=== PATIENT | female | born 1990 | race Caucasian/White ===

== ENCOUNTER → 2020-10-25 16:29 | Outpatient (CLI) | payer BC, SELFPAY ==
[2020-10-25 17:34] LABS: Progesterone Level 16.11 ng/mL (See Comment)
== END ==
PROVIDERS: Visit Provider Obstetrics & Gynecology
DX: N97.9 Female infertility, unspecified (principal)
CPT/HCPCS: 36415; 84144

== ENCOUNTER 2023-12-27 19:09 | Inpatient (IN) | payer BC, SELFPAY ==
[2023-12-27 19:32] VITALS: PULSE 213; O2SAT 81
[2023-12-27 19:33] VITALS: BP 150/83; PULSE 68; RESP 18; TEMP 36.3
[2023-12-27 19:35] VITALS: BMI 42.7
[2023-12-27 19:41] LABS: Absolute Lymphocyte Count 2.29 X10^3/uL (0.83-4.51); Absolute Neutrophil Count 6.4 X10^3/uL (2.0-7.7); Basophil# 0.02 X10^3/uL; Basophil% 0.2 % (0-1); Eosinophil# 0.11 X10^3/uL; Eosinophils% 1.2 % (0-5); Hemoglobin 11.9 g/dL (12.0-15.0); Lymphocyte # 2.29 X10^3/ul (0.83-4.51); Mean Corpuscular Hgb 29.8 pg (27.0-32.0); Mean Corpuscular Volume 87.7 fL (81-99); Mean Platelet Vol. 12.1 fl (6.2-12.0); Monocyte# 0.65 X10^3/uL; Monocyte% 6.8 % (0-10); NRBC Flagged by Analyzer 0 % (0-5); Neutrophil # 6.41 X10^3/uL (2.7-7.7); Neutrophil % 67.3 % (47-70); Platelet Count 141 K/mm3 (150-450); RBC Distribution Width CV 13.6 % (11.6-14.6); RBC Distribution Width SD 42.7 fl (35.1-43.9); Red Blood Count 3.99 M/mm3 (4.2-5.4); White Blood Count 9.5 K/mm3 (4.4-11.0)
[2023-12-27] MEDS: miSOPROStol 25 MCG TABLET VAGINAL (20:09)
[2023-12-27 20:18] LABS: Syphilis Antibodies Non-reactive
[2023-12-27 20:23] VITALS: BP 133/78; PULSE 69
--- NOTE | 2023-12-27 20:45 | HP.PCM.OB_ITS ---
HPI - General General Date of Admission: 12/27/23 Date of Service: 12/27/23 Chief Complaint: induction of labor HPI Narrative ALLISON LYNCH, is a 33 F who presents for induction of labor with BMI >40 Maternal Data Information Final LYNN: 12/31/23 Gestational age: 39+3 PFSH PFSH Medical History (Updated 12/27/23 @ 20:[address] Cristal Tomas MD) Asthma Home Medications ?Medication ?Instructions ?Recorded ?Last Taken ?Type albuterol sulfate 90 mcg/actuation inhalation Q4H PRN asthma 12/27/23 Unknown History aerosol inhaler aspirin 81 mg tablet,delayed 162 mg PO DAILY pre-e prevention 12/27/23 12/27/23 History release cholecalciferol (vitamin D3) 25 1,000 unit PO DAILY supplement 12/27/23 12/27/23 History mcg (1,000 unit) capsule docusate sodium 100 mg capsule 200 mg PO BID constipation 12/27/23 12/27/23 History (Colace) vit no.95-ferrous 1 tab PO DAILY 12/27/23 12/27/23 History fumarate 28 mg-folic acid 800 mcg tablet () Allergy/AdvReac Type Severity Reaction Status Date / Time No Known Allergies Allergy Verified 12/27/23 19:36 Surgical History (Updated 12/27/23 @ 19:48 by Viviana Phillips) [place] teeth removed History 1 Elective abortions Hx Para 0 Spontaneous abortions Hx # Term Pregnancies Ectopic pregnancies Hx # Pregnancies Multiple births # of living children NST FHR Rate Baby A Baseline: 130 Variability:: Moderate Accelerations:: 15 x 15 Decelerations:: None NST Reactive:: Yes FHR Category:: Category I Uterine Activity:: irregular ROS Constitutional Constitutional: Denies fatigue, fever(s) or malaise Eyes Eyes: Denies change in vision ENT HEENT: Denies dizziness or headache(s) Cardiovascular Cardiovascular: Denies chest pain, dyspnea or lightheadedness Respiratory/Chest Respiratory/Chest: Denies cough or dyspnea Gastrointestinal Gastrointestinal: Denies change in bowel habits Genitourinary Genitourinary: Denies burning urination or genital lesions Integumentary Integumentary: Denies rash Neurologic Neurologic: Denies confusion, dizziness, headache(s), numbness or weakness Vital Signs Vital Signs Vital Signs: 12/27/23 19:32 12/27/23 19:32 12/27/23 19:33 Temperature Temperature Source Pulse Rate 213 H Respiratory Rate Blood Pressure 150/83 H BP Systolic 150 BP Diastolic 83 Pulse Ox 81 12/27/23 19:33 12/27/23 19:33 12/27/23 19:33 Temperature Temperature Source Temporal Pulse Rate 68 Respiratory Rate 18 Blood Pressure BP Systolic BP Diastolic Pulse Ox 12/27/23 19:33 12/27/23 20:23 12/27/23 20:23 Temperature 97.4 F L Temperature Source Pulse Rate 69 Respiratory Rate Blood Pressure 133/78 H BP Systolic 133 BP Diastolic 78 Pulse Ox Weight Weight: 111.13 kg Body Mass Index (BMI) 42.7 Physical Exam Const alert and no apparent distress General Appearance: cooperative HEENT normocephalic Resp normal respiratory effort Cardio regular rate GI soft to palpation GI Narrative: gravid, nontender, appropriate for gestational age Extremity no calf tenderness General Extremity: edema Skin no wounds Rashes: No rashes noted Psych activity/motor behavior normal Labs Labs Labs: Blood Type A NEGATIVE Antibody Screen NEGATIVE Hct 35.0 % (37-47) L Hgb 11.9 g/dL (12.0-15.0) L Syphilis Total Ab Non-reactive Assessment & Plan (1) 39 weeks gestation of : (2) Elective induction of labor planned: PLAN: Plan cytotec induction of labor Dotson/pit planned epidural prn gbs negative
[2023-12-27 23:01] VITALS: BP 138/82; PULSE 69
[2023-12-27 23:02] VITALS: RESP 18; TEMP 36.3
[2023-12-28] VITALS (23 sets, daily range): BP systolic 116–144; BP diastolic 55–94; PULSE 63–87; RESP 14–18; TEMP 36.1–37.2; O2SAT 96–99
[2023-12-28] MEDS: miSOPROStol 25 MCG TABLET VAGINAL ×3 (00:09→09:07)
[2023-12-28] MEDS: 0.9% Normal Saline Single 100 ML IV.SOLN. INTRA-UTER (13:22)
--- NOTE | 2023-12-28 13:26 | PN.OBGYN_ITS ---
Subjective Subjective Dotson bulb placed without difficulty. 1cm/70/-3 Objective Data Objective Data Vital Signs: Vital Signs Temp Pulse Resp BP Pulse Ox 98.0 F 83 18 139/84 H 98 12/28/23 11:47 12/28/23 11:46 12/28/23 11:47 12/28/23 11:46 12/28/23 09:14 Weight: 111.13 kg Body Mass Index (BMI) 42.7 Intake & Output: Intake and Output for Last 24 Hours 12/26/23 12/27/23 12/28/23 23:59 23:59 23:59 Intake Total 200 / 200 300 / 300 Output Total 100 / 100 300 / 300 Balance 100 / 100 0 / 0 Lab / Micro Data 12/27/23 19:30 Labs: Laboratory Results - last 24 hr 12/27/23 19:30: WBC 9.5, RBC 3.99 L, Hgb 11.9 L, Hct 35.0 L, MCV 87.7, MCH 29.8, MCHC 34.0, RDW Std Deviation 42.7, RDW Coeff of [place] 13.6, Plt Count 141 L, MPV 12.1 H, Immature Gran % (Auto) 0.500, Neut % (Auto) 67.3, Lymph % (Auto) 24.0, [place] % (Auto) 6.8, Eos % (Auto) 1.2, Baso % (Auto) 0.2, Absolute Neuts (auto) 6.4, Absolute Lymphs (auto) 2.29, Nucleated RBC % 0, Syphilis Total Ab Non- reactive, Blood Type A NEGATIVE, Antibody Screen NEGATIVE NST FHR Rate Baby A FHR Category:: Category I Assessment & Plan (1) Elective induction of labor planned: (2) 39 weeks gestation of :
[2023-12-28] MEDS: 0.9% Saline Lock 10 ML Syringe IV (14:41)
[2023-12-28] MEDS: fentaNYL 100 MCG/2 ML Ampul IV (14:42)
[2023-12-28] MEDS: Lactated Ringers 1,000 ML 50 ML IV (17:00)
[2023-12-28] MEDS: Oxytocin 15 Units/NS 250ml 15 UNITS/250 ML IV.SOLN 2 UNITS IV (17:38)
[2023-12-29] VITALS (90 sets, daily range): BP systolic 114–157; BP diastolic 54–100; PULSE 71–108; RESP 14–25; TEMP 36.7–37.2; O2SAT 97–100
[2023-12-29] MEDS: Lactated Ringers 1,000 ML 999 ML IV ×2 (00:24→19:07)
[2023-12-29] MEDS: fentaNYL-bupivacaine (epidural) 100 ML BAG EPIDURAL ×4 (01:44→15:09)
[2023-12-29] MEDS: Lactated Ringers 1,000 ML 200 ML IV ×4 (04:41→19:00)
[2023-12-29] MEDS: Ondansetron 4 MG/2 ML Vial IV ×2 (06:11→18:41)
--- NOTE | 2023-12-29 06:35 | PCM.PN.OB ---
Subjective Subjective AROM for large amount of clear fluid. //-3 Cat I Pit at 10 Objective Data Objective Data Vital Signs: Vital Signs Temp Pulse Resp BP Pulse Ox 98.8 F 104 H 14 123/57 H 100 12/29/23 03:08 12/29/23 06:04 12/29/23 04:45 12/29/23 05:52 12/29/23 06:04 Weight: 111.13 kg Body Mass Index (BMI) 42.7 Intake & Output: Intake and Output for Last 24 Hours 12/27/23 12/28/23 12/29/23 23:59 23:59 23:59 Intake Total 200 / 200 1412.56 / 1412.56 1999 Output Total 100 / 100 1300 / 1300 Balance 100 / 100 112.56 / 112.56 1999 Lab / Micro Data 12/27/23 19:30 Assessment & Plan (1) Polyhydramnios affecting in third trimester: (2) 39 weeks gestation of : (3) Elective induction of labor planned: PLAN: Plan Epidural in place GBS negative Pitocin per protocol
[2023-12-29] MEDS: Oxytocin 15 Units/NS 250ml 15 UNITS/250 ML IV.SOLN 20 UNITS IV (14:10)
[2023-12-29] MEDS: Calcium Carbonate 500 MG Tablet 1000 MG PO (15:32)
--- NOTE | 2023-12-29 17:18 | PCM.PN.OB ---
Subjective Subjective Sitting up in bed, captains chair. at bedside. Comfortable with epidural. Objective Data Objective Data Vital Signs: Vital Signs Temp Pulse Resp BP Pulse Ox 98.1 F 77 16 126/73 H 98 12/29/23 16:42 12/29/23 16:42 12/29/23 16:42 12/29/23 16:42 12/29/23 13:19 Weight: 245 lb Body Mass Index (BMI) 42.7 Intake & Output: Intake and Output for Last 24 Hours 12/27/23 12/28/23 12/29/23 23:59 23:59 23:59 Intake Total 200 / 200 1412.56 / 1412.56 4128.07 / 4128.07 Output Total 100 / 100 1300 / 1300 1400 / 1400 Balance 100 / 100 112.56 / 112.56 2728.07 / 2728.07 Lab / Micro Data 12/27/23 19:30 Physical Exam Back/Spine Back/Spine Narrative: 4-5cm/70%/-2, minimal change from this am NST FHR Rate Baby A Baseline: 130 Variability:: Moderate Accelerations:: 15 x 15 Decelerations:: None FHR Category:: Category I Uterine Activity:: every 3-4 minutes, moderate to strong Assessment & Plan (1) Polyhydramnios affecting in third trimester: (2) Elective induction of labor planned: (3) 39 weeks gestation of : PLAN: Plan 1)Reviewed with patient minimal cervical change since this am, about 1/2 centimeter. AROM at 0630 and Pitocin started at 1730 on 12/27. Discussed inadequate contractions despite rupture of membranes for 6 hours and 24 hours of pitocin. Reviewed pitocin break for 25 minutes and tums to see if this would help. Will continue active management at this time and reevaluation in about 1-2 hours. updated on patient status and discussion for continued labor vs section. 2) Category 1 FHT
[2023-12-29] MEDS: Acetaminophen 500 MG Tablet PO (19:09)
[2023-12-29] MEDS: Sodium Citrate/Citric Acid 30 ML UDC PO (19:09)
--- NOTE | 2023-12-29 19:39 | OP.PCM_ITS ---
Assessment & Plan (1) Polyhydramnios affecting in third trimester: (2) Failed induction of labor: (3) 39 weeks gestation of : (4) High-risk in third trimester: (5) atony of uterus with hemorrhage: (6) delivery delivered: (7) DIC (disseminated intravascular coagulation): (8) Acute blood loss anemia: (9) Single live : (10) S/P emergency hysterectomy: Maternal Data Information Final LYNN: 12/31/23 Gestational age: 39 5/7 Details Operative Information Date of Procedure: 12/29/23 Pre-Operative Diagnosis: failed induction Post-Operative Diagnosis: same, + atony with hemorrhage, DIC, Classification: ISIS Procedure Type: low transverse (converted to hysterectomy with bilateral salpingectomy) director of content and programming #1: Casie Parekh director of content and programming #2: Gabriella Burks Type of Anesthesia: General (epidural ) Anesthesiologist: Juice Garrido Special Medications: duramorph Antibiotic Given: Ancef 2 grams IV x1 (repeated x 1 intraoperatively) and Zithromax 500 mg/5 mL X1 Drain: Dotson to straight drain Estimated Blood Loss: 4000 cc Fluids Replaced: See op report Procedure Start Time: 19:52 Procedure Stop Time: 21:58 Time of Delivery: 19:55 Findings Description of Procedure: I arrived to the unit to check the patient. She remained 4 cm 80% effaced and - 2 station with some caput. The cervix was tight and firm. Patient had been ruptured for 14 hours with Pitocin. Contractions were still inadequate. There had been no significant dilation or descent in more than 6 hours. Her induction of been going on for over 40 hours. I discussed with the patient and her risk benefits and alternatives to versus continued attempt at induction. Recommended proceed with section for failed induction. Questions were answered and they desire to proceed. The patient was taken to the operating room. She was prepped and draped in the dorsal supine position. A Pfannenstiel skin incision was made approximately 2 cm above the symphysis pubis and carried through to underlying layer fascia with the scalpel. The fascia was incised incised in the midline and extended laterally with the Ruiz scissors. The rectus muscles were in the midline and the peritoneum was entered bluntly. The peritoneal incision was stretched and the bladder blade was placed. The uterine incision was made in a low transverse fashion with the scalpel and extended superiorly and inferiorly with blunt dissection. The amniotic membranes were ruptured bluntly and clear amniotic fluid returned. The infant's head was brought to the incision in the flexed position and delivered without difficulty. The remainder of the infant was delivered with gentle traction and fundal pressure in the standard fashion. The mouth and nares were bulb suctioned. The cord was clamped and cut as the was stimulated. Cord clamping was delayed approximately 30 seconds. The infant was handed off to the waiting nursing staff. The placenta was delivered with fundal massage and gentle traction in the standard fashion. The uterus was exteriorized and cleared of all clots and debris. The uterine incision was closed with #1 Vicryl in a running locked fashion. Was noted that the uterus was slightly boggy and a dose of Methergine was given and the Pitocin was opened up. The uterus then firmed up nicely. A second layer of the same suture was used in an imbricating fashion to obtain hemostasis. The incision was examined and was found to be hemostatic. It was noted especially on the right side that the uterus began to become more boggy again. Fundal massage was initiated and the patient was then given 400 mcg of Cytotec to hold in her cheek. The uterus despite these measures continue to become more more boggy. The patient was then given Hemabate x 1. She was given another dose of Methergine. The uterus continued to be boggy. Was then returned to the peritoneal cavity and the Tyler O retractor was placed. The patient was then given Cytotec 600 mcg rectally and I asked for tranexamic acid to be ordered and 2 units of blood to be typed and crossed. Anesthesia started a second line and the hemorrhage cart was in the room. Labs were sent for CBC and coags. The uterine incision was opened and the uterine tamponade balloon was placed and inflated to 450 cc. The uterine incision was closed and it seemed the uterus started to firm up and then began to be boggy again. A code was called and 2 units of blood were ordered to be sent up. The patient was then intubated and Dr. York and Dr. Contreras were called in. Another dose of hemabate was given. I placed sutures around each utero-ovarian and uterine artery sparing the tubes and cinched them down. A 1 PDS suture was placed through the anterior lower uterine segment over the back of the uterus and through the lower posterior uterine segment and back over the top to the anterior lower uterine segement and cinched down in a modified B-urias fashion. Despite these measures the uterus was boggy and not clamping down. Dr Contreras and I agreed that we needed to proceed with a hysterectomy. ' The LigaSure device was used to clamp seal and transect the round ligaments. The utero-ovarian ligaments were then clamped sealed and transected with the LigaSure device. An 0 Vicryl suture was placed around the the pedicle on the ovarian side to ensure hemostasis. The bladder flap was dissected down with Metzenbaum scissors and blunt dissection. The uterine arteries were clamped sealed and transected with the LigaSure device. This was performed on both sides. At what appeared to be the junction with the lower uterine segment and the cervix a suture was placed around the uterine artery pedicles and tied down. Above this the LigaSure device was used to clamp seal and transect across the lower uterine segment so that the uterus was removed. The vaginal cuff or upper portion of the cervix was then closed in a running standard fashion with [id number] 0 Vicryl sutures. The antimesenteric portions of tube were clamped sealed and transected and the tubes were removed. There was some generalized oozing from the pedicles but no active bleeding. The pelvis was irrigated with warmed with warm normal saline and again there was some small oozing but no active bleeding. Some Hemablast was placed over the vaginal cuff and the Tyler O retractor was removed. Another dose of 2 g of Ancef was ordered and given intraoperatively during the case because of the large blood loss. The parietal peritoneum was closed with 0 Vicryl suture in a running standard fashion. The rectus fascia was examined and any bleeding was Bovie cauterized and Hemablast was placed diffusely. The rectus fascia was closed with looped #1 PDS suture suture in a running standard fashion. The subcutaneous tissue was examining and any bleeding was Bovie cauterized. Hemablast was placed in this space. The subcutaneous tissue was reapproximated with 3-[address] Contreras the skin was closed in a subcuticular fashion by Dr. Contreras. I performed the remainder of the procedure with assistance. The CAREER DEVELOPMENT DIRECTOR provided retraction, uterine massage, fundal massage for delivery and tissue manipulation. Dr. Contreras provided assistance with the hysterectomy, visualization and retraction as well as closure of the skin layers. All sponge, lap, and needle counts were correct. The patient was taken to her room for recovery in a stable condition. Presentation: Positive for Vertex Amniotic Membrane Rupture Type: Artificial Amniotic Fluid Description: Clear Placental Delivery Description: Expressed Placenta Disposition: Routine to Lab Specimen(s) Sent to Pathology: placenta, uterus, bilateral fallopian tubes Cord Vessel Description: 3 Vessels Cord Entanglement: None Infant A Gender: Male Delayed Cord Clamping: Yes Complications Risks of Surgery Discussed w/Patient: Bleeding Complications: atony with hemorrhage
[2023-12-29] MEDS: Cefazolin 2 GM in 0.9% Normal Saline (100mL Bag) 100 ML IV (19:50)
[2023-12-29] MEDS: Methylergonovine 0.2 MG/ML Ampul IM ×2 (20:00→20:11)
[2023-12-29] MEDS: miSOPROStol 200 MCG Tablet 400 MCG BUCCAL (20:07)
[2023-12-29] MEDS: miSOPROStol 200 MCG Tablet 600 MCG RC (20:12)
[2023-12-29] MEDS: Carboprost Tromethamine 250 MCG/ML Ampul IM ×2 (20:16→20:30)
[2023-12-29] MEDS: TRANEXAMIC ACID 1,000 MG in 0.9% Normal Saline (100mL Bag) 100 ML 440 MG IV ×2 (20:25→21:21)
[2023-12-29 20:39] LABS: Absolute Lymphocyte Count 0.73 X10^3/uL (0.83-4.51); Absolute Neutrophil Count 4.5 X10^3/uL (2.0-7.7); Basophil# 0.01 X10^3/uL; Basophil% 0.2 % (0-1); Eosinophil# 0.01 X10^3/uL; Eosinophils% 0.2 % (0-5); Hematocrit 14.5 % (37-47); Lymphocyte # 0.73 X10^3/ul (0.83-4.51); Lymphocyte % 13.2 % (19-41); Mean Corpuscular Hgb 29.6 pg (27.0-32.0); Mean Corpuscular Volume 95.4 fL (81-99); Monocyte# 0.28 X10^3/uL; Monocyte% 5.1 % (0-10); NRBC Flagged by Analyzer 0 % (0-5); Neutrophil # 4.47 X10^3/uL (2.7-7.7); Neutrophil % 80.8 % (47-70); POSITIVE COUNT YES; Platelet Count 49 K/mm3 (150-450); RBC Distribution Width CV 13.7 % (11.6-14.6); RBC Distribution Width SD 46.9 fl (35.1-43.9); Red Blood Count 1.52 M/mm3 (4.2-5.4); White Blood Count 5.5 K/mm3 (4.4-11.0)
[2023-12-29 20:42] LABS: Hemoglobin 4.5 g/dL (12.0-15.0)
[2023-12-29 20:43] LABS: Differential Indicated SCAN CRITERIA MET; Mean Platelet Vol. 12.4 fl (6.2-12.0)
[2023-12-29] MEDS: Carboprost Tromethamine 250 MCG/ML Ampul OPERA.SITE (20:47)
[2023-12-29] MEDS: Azithromycin 500 MG in Dextrose 5%-Water (250mL Bag) 250 ML 250 MG IV (21:00)
[2023-12-29 21:12] LABS: International Normalized Ratio 2.2; Prothrombin Time (Protime)PT. 24.2 SECONDS (11.7-14.9)
[2023-12-29 21:26] LABS: Absolute Lymphocyte Count 1.22 X10^3/uL (0.83-4.51); Absolute Neutrophil Count 14.3 X10^3/uL (2.0-7.7); Basophil# 0.06 X10^3/uL; Basophil% 0.4 % (0-1); Eosinophil# 0.03 X10^3/uL; Eosinophils% 0.2 % (0-5); Hematocrit 29.6 % (37-47); Hemoglobin 9.7 g/dL (12.0-15.0); Lymphocyte # 1.22 X10^3/ul (0.83-4.51); Lymphocyte % 7.5 % (19-41); Mean Corp Hgb Conc 32.8 g/dL (32-36); Mean Corpuscular Hgb 29.2 pg (27.0-32.0); Mean Corpuscular Volume 89.2 fL (81-99); Mean Platelet Vol. 11.7 fl (6.2-12.0); Monocyte% 4.3 % (0-10); NRBC Flagged by Analyzer 0 % (0-5); Neutrophil # 14.25 X10^3/uL (2.7-7.7); Neutrophil % 87.2 % (47-70); POSITIVE COUNT YES; Platelet Count 85 K/mm3 (150-450); RBC Distribution Width CV 13.5 % (11.6-14.6); RBC Distribution Width SD 43.9 fl (35.1-43.9); Red Blood Count 3.32 M/mm3 (4.2-5.4); White Blood Count 16.3 K/mm3 (4.4-11.0)
[2023-12-29 21:27] LABS: Partial Thromboplast Time 55.3 Seconds (24.1-36.2)
[2023-12-29 21:43] LABS: ALB/GLOB Ratio 0.7 RATIO (0.9-2.4); AST(SGOT) 26 U/L (15-37); Alanine Aminotransfer ALT/SGPT 11 U/L (13-56); Albumin, Serum 1.6 g/dL (3.2-5.0); Alkaline Phosphatase 90 U/L (45-117); Anion Gap 9 (5-15); BUN 5 mg/dL (7-18); BUN/Creat Ratio 8.1 RATIO (10-20); Calcium,Total 7.4 mg/dL (8.5-10.1); Chloride 112 mmol/L (98-107); Creatinine, Serum 0.62 mg/dL (0.55-1.02); EST Glomerular Filtration Rate 118 mL/min (>60); Est Glom Filt Rate - Afr Amer 143 mL/min (>60); Estimated Creatinine Clearance 154.62 ml/min; Globulin 2.4 g/dL (2.2-4.2); Glucose 110 mg/dL (74-106); Potassium 3.9 mmol/L (3.5-5.1); Sodium Level 140 mmol/L (136-145)
[2023-12-29 22:20] LABS: Anisocytosis RARE; Hypochromasia 1+; Macrocytosis RARE; Ovalocyte RARE; Platelet Estimate MKD DEC (ADEQ); Red Cell Morphology N CHROM NORMAL (NORM C&C)
--- NOTE | 2023-12-29 22:46 | HYST_PTH ---
PATIENT: ALLISON LYNCH LOC: [facility] U#:[id number] AGE/SX: 33/F ROOM: WP006 RE12/27/[address]: Dr. Christie Francois MD : 1990 BED: 1 DIS: 12/31/2023 SPEC #: [id number] RECD: 12/29/23 22:51 STATUS: GABRIELLE RESENDIZ #: [id number] BRENDA: 12/29/23 22:[address]: Christie Francois DEPT: SURGICAL PATHOLOGY RECD BY: Khang Rodriguez ENTERED: 12/30/23 08:08 SP TYPE: HYSTERECT OTHR DR: Dr. Arlin Law, DO Tissues: A - Uterus, NOS B - Placenta, NOS Procedures: Surgery Specimen Level V HEADER OPERATION: section/ Hysterectomy PRE-OP DIAGNOSIS: hysterectomy/ section TISSUE SUBMITTED: A- Bilateral fallopian tubes and uterus, B- Placenta MICROSCOPIC DIAGNOSIS A. Uterus and bilateral fallopian tubes, supracervical hysterectomy and bilateral salpingectomy: Endometrium - Decidual changes with associated inflammation. Myometrium - No pathologic diagnosis. Bilateral fallopian tubes- No pathologic diagnosis. B. Placenta: Placental disc - third trimester placenta (630gm). Membranes -Focal acute chorioamnionitis. Umbilical cord - three blood vessels and velamentous insertion. SJ: 01/01/2024 MICROSCOPIC DESCRIPTION Slides are reviewed. GROSS DESCRIPTION A. Received in fixative is one container labeled with the patient's name and designated uterus. The specimen consists of a supracervical hysterectomy specimen consisting of uterus and detached bilateral fallopian tubes. The uterus weighs 1045 gm and measures 17.0 x 19.0 x 9.0 cm. The serosal surface is congested. Multiple sutures are present on the uterus. Resection margin of the uterus also shows multiple sutures and resection margin is congested and hemorrhagic. The endometrial cavity measures 12.0 cm in length and up to 12.0cm in width. Endometrium is congested and hemorrhagic and measures up to 0.2cm in thickness. No obvious adherent placental tissue is not identified. Section of the uterine wall do not reveal any mass lesion and measures up to 4.0cm in thickness. One of the detached fallopian tubes shows a suture and measures 7.0cm in length and 0.7cm in diameter. Second fallopian tube without suture measures 6.0cm in length and 0.8cm in diameter. Fimbrial ends are identified. Sections reveal unremarkable cut surfaces. Foster Winder sections are submitted in eight cassettes as follows: 1 - anterior lower uterine segment, 2 - posterior lower uterine segment, 3 & 4 - anterior uterine wall, 5 & 6 - posterior uterine wall, 7- fallopian tube with suture, 8- fallopian tube without suture. ADI. 12/30/2023 B. SPECIMEN: PLACENTA / CLINICAL INFORMATION: A. Weight: 3.87 kg B. Gestational Age: 39 weeks C. Sex: Male PLACENTAL WEIGHT (POST FIXATION): 630 gm PLACENTAL DIMENSIONS: 19.0 x 15.0 x 4.0cm PLACENTAL SHAPE: Usual ovoid PLACENTAL WEIGHT FOR GESTATIONAL AGE: over 99th percentile MEMBRANES - Present A. Insertion: Marginal B. Site of rupture from edge: 5.0 cm from edge of placental disc C. Color of membrane: Strickland-zamora D. Abnormalities: Multiple blood clots are noted in the membranes weighing 39gm and measuring in aggregate 8.0 x 6.0 x 2.0cm UMBILICAL CORD - Present A. Color: Strickland-zamora B. Insertion: Inserted in the membranes, 7cm away from the margin of the placenta (velamentous insertion). C. Length: 27.0 cm D. Diameter: 1.0 cm E. Number of vessels: Three F. Abnormalities: None PLACENTAL DISC - Present A. Color of surface: Strickland-zamora B. surface abnormalities: None C. Maternal cotyledons: Intact with minimal tears D. Attached retro placental clot: A few retro placental blood clots are noted E. Cut surface: Dark red and spongy F. Lesions: None G. Separate clot: Absent SECTIONS SUBMITTED: (6 cassettes) 1. Membrane roll 2. Cord, maternal end 3. Cord, end 4. Placental disc, and maternal surfaces 5. Placental disc, and maternal surfaces 6. Placental disc, and maternal surfaces . 12/31/2023 TC:2 CPT: 68809q8
[2023-12-29 22:48] LABS: International Normalized Ratio 1.4; Prothrombin Time (Protime)PT. 16.9 SECONDS (11.7-14.9)
[2023-12-29 22:49] LABS: Partial Thromboplast Time 32.5 Seconds (24.1-36.2)
[2023-12-29 22:58] LABS: Fibrinogen 319 mg/dl (203-444)
[2023-12-29 22:58] LABS: Fibrinogen 175 mg/dl (203-444)
[2023-12-29 23:41] LABS: Pathology Specimen OB SEE PATHOLOGY REPORT
[2023-12-29 23:41] LABS: Pathology Specimen OB SEE PATHOLOGY REPORT
[2023-12-30] VITALS (13 sets, daily range): BP systolic 95–153; BP diastolic 58–85; PULSE 77–89; RESP 13–20; TEMP 36.3–37.2; O2SAT 95–99
[2023-12-30 00:37] LABS: Hematocrit 28.4 % (37-47); Hemoglobin 9.8 g/dL (12.0-15.0); Mean Corp Hgb Conc 34.5 g/dL (32-36); Mean Corpuscular Hgb 30.4 pg (27.0-32.0); Mean Corpuscular Volume 88.2 fL (81-99); Mean Platelet Vol. 11.8 fl (6.2-12.0); Platelet Count 103 K/mm3 (150-450); RBC Distribution Width CV 13.7 % (11.6-14.6); RBC Distribution Width SD 43.6 fl (35.1-43.9); Red Blood Count 3.22 M/mm3 (4.2-5.4); White Blood Count 15.1 K/mm3 (4.4-11.0)
[2023-12-30] MEDS: Loperamide 2 MG Capsule 4 MG PO (00:38)
[2023-12-30] MEDS: Acetaminophen 500 MG Tablet 1000 MG PO ×4 (00:38→18:33)
[2023-12-30] MEDS: Lactated Ringers 1,000 ML 100 ML IV (00:39)
[2023-12-30 01:18] LABS: International Normalized Ratio 1.3; Prothrombin Time (Protime)PT. 16.3 SECONDS (11.7-14.9)
[2023-12-30 01:19] LABS: Partial Thromboplast Time 32.3 Seconds (24.1-36.2)
[2023-12-30 01:27] LABS: Fibrinogen 387 mg/dl (203-444)
--- NOTE | 2023-12-30 01:50 | NURSING ---
Addendum entered by Anabelle Ko 12/30/23 02:20: 3 units PRBC's and 2 FFP given per anesthesia in OR. 1 FFP given in recovery by RN. Original Note: 1999 Methergine 0.2mg IM in the right thigh given upon atony noted per Dr. Francois. Hemorrhage checklist initiated at this time. Pitocin given wide open. 2006 Cytotec 400mcg given per buccal. 2010 Second dose of Methergine given in left thigh. Hemorrhage cart brought to OR. 2011 Cytotec 600mcg given rectally. 2015 Hemabate 250mcg given IM in the right leg. 2020 Balloon Tamponade placed per Dr. Francois and inflated with 450ml of Normal Saline. 2 units PRBC to be type and cross matched. On hold in blood bank. 2022 Dr. Chung called to assist. Juan M Louis called per Dr. Francois. Blood bank notified per KMcdaniel. CBC/PTT/Fibrinogen drawn. Hysterectomy cart brought into OR . 2024 2nd IV placed by Shayy. TXA 1g given per IV. 2029 Second dose of Hemabate given in the right deltoid. Dr. Chung arrives to OR 1. 2037 100ml removed from balloon tamponade. 2039 Additional 100ml removed from balloon tamponade. 2040 P. Beegle notified to call OR team in per KMcdaniel. 2042 Balloon tamponade removed completely. 2044 Code Sandoval initiated. Blood bank notified per KMcdaniel. 2051 Hysterectomy started. OR team in route. 2112 Repeat labs drawn including PT/PTT/Fibrinogen/INR/CBC. [address] Francois out to update family. Plan to redraw labs at midnight and call Dr. Francois with results. 2224 Transferred to recovery.
[2023-12-30] MEDS: Cefazolin 1 GM/50 ML BAG IV ×3 (02:30→15:23)
[2023-12-30 07:01] LABS: Hematocrit 26.2 % (37-47); Hemoglobin 8.9 g/dL (12.0-15.0); Mean Corpuscular Hgb 29.7 pg (27.0-32.0); Mean Corpuscular Volume 87.3 fL (81-99); Mean Platelet Vol. 11.4 fl (6.2-12.0); Platelet Count 112 K/mm3 (150-450); White Blood Count 11.1 K/mm3 (4.4-11.0)
[2023-12-30 07:14] LABS: International Normalized Ratio 1.3; Prothrombin Time (Protime)PT. 15.9 SECONDS (11.7-14.9)
[2023-12-30 07:15] LABS: Partial Thromboplast Time 33.9 Seconds (24.1-36.2)
[2023-12-30 07:27] LABS: Fibrinogen 369 mg/dl (203-444)
[2023-12-30 08:05] LABS: ALB/GLOB Ratio 0.7 RATIO (0.9-2.4); AST(SGOT) 35 U/L (15-37); Alanine Aminotransfer ALT/SGPT 13 U/L (13-56); Alkaline Phosphatase 87 U/L (45-117); Anion Gap 4 (5-15); BUN 5 mg/dL (7-18); BUN/Creat Ratio 9.3 RATIO (10-20); Calcium,Total 7.9 mg/dL (8.5-10.1); Chloride 110 mmol/L (98-107); Creatinine, Serum 0.54 mg/dL (0.55-1.02); EST Glomerular Filtration Rate 139 mL/min (>60); Est Glom Filt Rate - Afr Amer 169 mL/min (>60); Estimated Creatinine Clearance 177.53 ml/min; Globulin 2.7 g/dL (2.2-4.2); Glucose 82 mg/dL (74-106); Magnesium 1.4 mg/dL (1.6-2.6); Potassium 3.6 mmol/L (3.5-5.1); Protein, Total 4.7 g/dL (6.4-8.2); Sodium Level 138 mmol/L (136-145)
--- NOTE | 2023-12-30 08:24 | PN.OBGYN_ITS ---
Subjective Subjective Pain well-controlled. No nausea or vomiting. Denies shortness of breath or chest pain. Objective Data Objective Data Vital Signs: Vital Signs Temp Pulse Resp BP Pulse Ox O2 Del Method 98.9 F 88 20 H 117/68 95 Room Air 12/30/23 06:15 12/30/23 06:15 12/30/23 06:15 12/30/23 06:15 12/30/23 06:15 12/30/23 06:15 Oxygen Delivery Method Room Air Weight: 111.13 kg Body Mass Index (BMI) 42.7 Intake & Output: Intake and Output for Last 24 Hours 12/28/23 12/29/23 12/30/23 23:59 23:59 23:59 Intake Total 1412.56 / 1412.56 6719.47 / 6719.47 50 / 50 Output Total 1300 / 1300 6200 / 6200 1600 / 1600 Balance 112.56 / 112.56 519.47 / 519.47 -1550 / -1550 Lab / Micro Data 12/30/23 06:30 12/30/23 06:30 Labs: Laboratory Results - last 24 hr 12/29/23 19:30: Crossmatch See Detail 12/29/23 20:23: WBC 5.5, RBC 1.52 L, Hgb 4.5 L*, Hct 14.5 L, MCV 95.4 D, MCH 29.6, MCHC 31.0 L D, RDW Std Deviation 46.9 H, RDW Coeff of [place] 13.7, Plt Count 49 L*, MPV 12.4 H, Immature Gran % (Auto) 0.500, Neut % (Auto) 80.8 H, Lymph % (Auto) 13.2 L, Riley % (Auto) 5.1, Eos % (Auto) 0.2, Baso % (Auto) 0.2, Absolute Neuts (auto) 4.5, Absolute Lymphs (auto) 0.73 L, Nucleated RBC % 0, Differential Comment SEE COMMENT, Diff Path Review May malathi, Platelet Estimate MKD DEC, RBC Morphology N CHROM, Hypochromasia 1+, Anisocytosis RARE, Macrocytosis RARE, Ovalocytes RARE 12/29/23 20:35: PT 24.2 H, INR 2.2, APTT 55.3 H, Fibrinogen 175 L 12/29/23 21:13: WBC 16.3 H, RBC 3.32 L, Hgb 9.7 L, Hct 29.6 L, MCV 89.2 D, MCH 29.2, MCHC 32.8 D, RDW Std Deviation 43.9, RDW Coeff of [place] 13.5, Plt Count 85 L, MPV 11.7, Immature Gran % (Auto) 0.400, Neut % (Auto) 87.2 H, Lymph % (Auto) 7.5 L, Riley % (Auto) 4.3, Eos % (Auto) 0.2, Baso % (Auto) 0.4, Absolute Neuts (auto) 14.3 H, Absolute Lymphs (auto) 1.22, Nucleated RBC % 0, PT 16.9 H, INR 1.4, APTT 32.5, Fibrinogen 319, Sodium 140, Potassium 3.9, Chloride 112 H, C arbon Dioxide 19.0 L, Anion Gap 9, BUN 5 L, Creatinine 0.62, Estim Creat Clear Calc 154.62, Est GFR (MDRD) Af Amer 143, Est GFR (MDRD) Non-Af 118, B UN/Creatinine Ratio 8.1 L, Glucose 110 H, Calcium 7.4 L, Total Bilirubin 0.60, AST 26, ALT 11 L, Alkaline Phosphatase 90, Total Protein 4.0 L, Albumin 1.6 L, Globulin 2.4, Albumin/Globulin Ratio 0.7 L 12/30/23 00:05: WBC 15.1 H, RBC 3.22 L, Hgb 9.8 L, Hct 28.4 L, MCV 88.2, MCH 30.4, MCHC 34.5 D, RDW Std Deviation 43.6, RDW Coeff of Tico 13.7, Plt Count 103 L, MPV 11.8, PT 16.3 H, INR 1.3, APTT 32.3, Fibrinogen 387 12/30/23 06:30: WBC 11.1 H, RBC 3.00 L, Hgb 8.9 L, Hct 26.2 L, MCV 87.3, MCH 29.7, MCHC 34.0, RDW Std Deviation 44.0 H, RDW Coeff of Tico 14.0, Plt Count 112 L, MPV 11.4, PT 15.9 H, INR 1.3, APTT 33.9, Fibrinogen 369, Sodium 138, Potassium 3.6, Chloride 110 H, Carbon Dioxide 24.0, Anion Gap 4 L, BUN 5 L, C reatinine 0.54 L, Estim Creat Clear Calc 177.53, Est GFR (MDRD) Af Amer 169, Est GFR (MDRD) Non-Af 139, BUN/Creatinine Ratio 9.3 L, Glucose 82, Calcium 7.9 L, M agnesium 1.4 L, Total Bilirubin 1.00, AST 35, ALT 13, Alkaline Phosphatase 87, T otal Protein 4.7 L, Albumin 2.0 L, Globulin 2.7, Albumin/Globulin Ratio 0.7 L Physical Exam Narrative Awake, alert, no acute distress Skin warm dry and intact Abdomen soft with mild distention, appropriate tenderness. Extremities 1+ edema soft and nontender. SCDs on. Assessment & Plan (1) S/P emergency hysterectomy: PLAN: Blood count is stable after EBL approx 4000 cc. DIC-Coags are stable. No evidence of ongoing intraperitoneal bleeding. Will start Toradol to help with pain control. Ambulate today. Continue postop antibiotics to d/c by 24 hrs. Questions answered. Repeat labs at noon. Regular diet ok. bottlefeeding and doing well. Mag and calcium slightly low but stable. (2) Acute blood loss anemia: (3) DIC (disseminated intravascular coagulation): (4) delivery delivered:
[2023-12-30] MEDS: 0.9% Saline Lock 10 ML Syringe IV ×4 (09:00→22:15)
[2023-12-30] MEDS: Ketorolac 30 MG/ML Syringe IV ×3 (10:00→22:15)
[2023-12-30] MEDS: Senna/Docusate Sodium 1 Tablet PO (10:00)
[2023-12-30 11:42] LABS: Pathologist Review Reviewed
[2023-12-30 12:37] LABS: Hematocrit 25.7 % (37-47); Hemoglobin 8.6 g/dL (12.0-15.0); Mean Corp Hgb Conc 33.5 g/dL (32-36); Mean Corpuscular Hgb 29.6 pg (27.0-32.0); Mean Corpuscular Volume 88.3 fL (81-99); Mean Platelet Vol. 11.5 fl (6.2-12.0); Platelet Count 112 K/mm3 (150-450); RBC Distribution Width CV 14.1 % (11.6-14.6); RBC Distribution Width SD 44.7 fl (35.1-43.9); Red Blood Count 2.91 M/mm3 (4.2-5.4); White Blood Count 9.8 K/mm3 (4.4-11.0)
[2023-12-30 12:38] LABS: Fibrinogen 387 mg/dl (203-444)
[2023-12-30] MEDS: Enoxaparin 40 MG/0.4 ML Syringe SC (17:54)
[2023-12-31] MEDS: Acetaminophen 500 MG Tablet 1000 MG PO ×3 (00:35→12:35)
[2023-12-31 02:15] VITALS: BP 115/60; PULSE 72; RESP 16; TEMP 36.6; O2SAT 97
[2023-12-31] MEDS: Ketorolac 30 MG/ML Syringe IV (04:00)
[2023-12-31] MEDS: Enoxaparin 40 MG/0.4 ML Syringe SC (06:40)
--- NOTE | 2023-12-31 08:45 | PCM.PROGNOTE ---
Subjective Subjective patient seen at bedside, doing well. Patient reports good pain control. Patient reports she feels excellent. Had a bowel movement today. Urinating without difficulty. Patient would like to go home today. She has no vaginal bleeding. Objective Data Objective Data Vital Signs: Vital Signs Temp Pulse Resp BP Pulse Ox O2 Del Method 97.9 F 72 16 115/60 97 Room Air 12/31/23 02:15 12/31/23 02:15 12/31/23 02:15 12/31/23 02:15 12/31/23 02:15 12/31/23 02:15 Oxygen Delivery Method Room Air Weight: 111.13 kg Body Mass Index (BMI) 42.7 Intake & Output: Intake and Output for Last 24 Hours 12/29/23 12/30/23 12/31/23 23:59 23:59 23:59 Intake Total 6719.47 / 6719.47 2150 / 2150 Output Total 6200 / 6200 2200 / 2200 Balance 519.47 / 519.47 -50 / -50 Lab / Micro Data 12/30/23 12:15 12/30/23 06:30 Labs: Laboratory Results - last 24 hr 12/29/23 19:30: Crossmatch See Detail 12/29/23 20:23: Diff Path Review Reviewed 12/30/23 12:15: WBC 9.8, RBC 2.91 L, Hgb 8.6 L, Hct 25.7 L, MCV 88.3, MCH 29.6, MCHC 33.5, RDW Std Deviation 44.7 H, RDW Coeff of Tico 14.1, Plt Count 112 L, MPV 11.5, Fibrinogen 387 Physical Exam Narrative Abdomen. Nondistended dressing dry and intact. Const alert and oriented x3 General Appearance: cooperative HEENT normocephalic Neck General: normal visual inspection GI soft to palpation and non-distended GI Narrative: Fundus firm Extremity normal to inspection and no calf tenderness Skin no rashes or lesions noted Neuro oriented x3 and CN's II-XII intact bilaterally Psych mental status grossly normal Assessment & Plan Assessment/Plan (1) S/P emergency hysterectomy: (2) Acute blood loss anemia: (3) Single live : (4) DIC (disseminated intravascular coagulation): (5) atony of uterus with hemorrhage: (6) delivery delivered: PLAN: Plan POD# 2 , Doing well Routine care pain mgmt monitor VS ambulation repeat CBC, BMP this am and if stable plan for DC Home today
--- NOTE | 2023-12-31 08:48 | PCM.DC.BLA ---
Discharge Summary Date of Admission: 12/27/23 Date of Discharge: 12/31/23 Summary: Patient was admitted to [facility] 12/27/2023 for labor induction. She ultimately had a failed induction and underwent a primary section she had uterine atony immediately after delivery had immediate hemorrhage. Multiple attempts were made for control of the hemorrhage please see operative note for this. Ultimately patient underwent a hysterectomy she received multiple units of packed red blood cells fresh frozen plasma and platelets. She did well postoperatively and was discharged home on postoperative day #2 in stable condition. Meaningful Use Info Meaningful Use Meaningful Use Diagnoses (Choose all that apply): None applicable Ischemic Stroke Statin Dosing Therapy Reference: STATIN DOSE THERAPY REFERENCE: * Patients > 75 years receive moderate or high dose statin therapy. * Patients 75 years or YOUNGER should receive HIGH intensity statin dose unless contraindicated. You will be required to document reason for non-treatment if statin daily dose does not meet guidelines. HIGH DOSE STATIN THERAPY DAILY Atorvastatin > than or = to 40 mg Rosuvastatin > than or = to 20 mg Amlodipine + Atorvastatin > than or = to 2.5/40 mg Ezetimibe + Simvastatin 10/80 mg Simvastatin 80mg Discharge Plan Admission Admit Date/Time: 12/27/23 19:09 Attending Provider: Christie Francois Primary Care Provider: Arlin Law Discharge Orders/Prescriptions Prescriptions: No Action albuterol sulfate 90 mcg/actuation HFA aerosol inhaler inhalation Q4H PRN (Reason: asthma) PNV cmb#95-ferrous fumarate-FA [] 28 mg iron- 800 mcg tablet 1 tab PO DAILY cholecalciferol (vitamin D3) 25 mcg (1,000 unit) capsule 1,000 unit PO DAILY aspirin 81 mg tablet,delayed release (DR/EC) 162 mg PO DAILY docusate sodium [Colace] 100 mg capsule 200 mg PO BID Patient Comments: 2 tab in AM and 1 tab in PM Referrals / Follow Up: Arlin Law DO [Primary Care Provider] -
--- NOTE | 2023-12-31 08:50 | DCINST_ITS ---
Discharge Instructions Diet Discharge Diet: No restrictions Activity May resume sexual activity in: 6-8 weeks Lifting Restrictions: 25 Dressing / Incision Call your doctor if your incision/area has: Continuous Slow Oozing, Sudden Increased Bleeding, Increased Pain/ Swelling, Increased Redness, Foul Smelling Discharge and Swelling at the incision site Call your doctor if you observe: Fever of 101 or Higher, Inability to urinate, Using more than 1 pad per hour and Uncontrolled pain Additional Dressing/Incision Instructions:: remove dressing at 7 days post op- if it becomes saturated prior to that time you may remove it. Let soap and water run over incision sites and dab dry. keep incision clean and dry. Follow Up Care Please Follow Up With: Gabriella Burks MD When: 1-2 weeks post of incision check and again at 6 weeks post . [phone] Test Results: Test results from this visit will be discussed in further detail at your follow- up appointment, if applicable. Discharge Plan Admission Admit Date/Time: 12/27/23 19:09 Attending Provider: Christie Francois Primary Care Provider: Arlin Law Discharge Orders/Prescriptions Prescriptions: No Action albuterol sulfate 90 mcg/actuation HFA aerosol inhaler inhalation Q4H PRN (Reason: asthma) PNV cmb#95-ferrous fumarate-FA [] 28 mg iron- 800 mcg tablet 1 tab PO DAILY cholecalciferol (vitamin D3) 25 mcg (1,000 unit) capsule 1,000 unit PO DAILY aspirin 81 mg tablet,delayed release (DR/EC) 162 mg PO DAILY docusate sodium [Colace] 100 mg capsule 200 mg PO BID Patient Comments: 2 tab in AM and 1 tab in PM Referrals / Follow Up: Arlin Law DO [Primary Care Provider] -
--- NOTE | 2023-12-31 08:51 | DCINST_ITS ---
Discharge Instructions Diet Discharge Diet: No restrictions Activity May resume sexual activity in: 6-8 weeks Dressing / Incision Call your doctor if your incision/area has: Continuous Slow Oozing, Sudden Increased Bleeding, Increased Pain/ Swelling, Increased Redness, Foul Smelling Discharge and Swelling at the incision site Call your doctor if you observe: Fever of 101 or Higher, Inability to urinate, Using more than 1 pad per hour and Uncontrolled pain Additional Dressing/Incision Instructions:: remove dressing at 7 days post op- if it becomes saturated prior to that time you may remove it. Let soap and water run over incision sites and dab dry. keep incision clean and dry. Follow Up Care Please Follow Up With: Gabriella Burks MD Test Results: Test results from this visit will be discussed in further detail at your follow- up appointment, if applicable. Discharge Plan Admission Admit Date/Time: 12/27/23 19:09 Attending Provider: Christie Francois Primary Care Provider: Arlin Law Discharge Orders/Prescriptions Prescriptions: New acetaminophen 500 mg Tablet 1,000 mg PO Q6H Qty: 0 0RF ibuprofen 600 mg Tablet 600 mg PO Q6H Qty: 0 0RF simethicone 80 mg Tablet,Chewable 80 mg PO PCHS PRN (Reason: Indigestion/stomach pain) Qty: 0 0RF Continued albuterol sulfate 90 mcg/actuation HFA aerosol inhaler inhalation Q4H PRN (Reason: asthma) PNV cmb#95-ferrous fumarate-FA [] 28 mg iron- 800 mcg tablet 1 tab PO DAILY cholecalciferol (vitamin D3) 25 mcg (1,000 unit) capsule 1,000 unit PO DAILY docusate sodium [Colace] 100 mg capsule 200 mg PO BID Patient Comments: 2 tab in AM and 1 tab in PM Discontinued aspirin 81 mg tablet,delayed release (DR/EC) 162 mg PO DAILY Referrals / Follow Up: Arlin Law DO [Primary Care Provider] -
[2023-12-31 10:00] VITALS: BP 129/77; PULSE 72; RESP 18; TEMP 36.6; O2SAT 98
[2023-12-31 10:20] LABS: Hemoglobin 8.5 g/dL (12.0-15.0); Mean Corpuscular Hgb 30.1 pg (27.0-32.0); Mean Corpuscular Volume 88.7 fL (81-99); Mean Platelet Vol. 11.1 fl (6.2-12.0); Platelet Count 129 K/mm3 (150-450); RBC Distribution Width CV 14.2 % (11.6-14.6); RBC Distribution Width SD 45.2 fl (35.1-43.9); Red Blood Count 2.82 M/mm3 (4.2-5.4); White Blood Count 9.8 K/mm3 (4.4-11.0)
[2023-12-31 10:50] LABS: Anion Gap 5 (5-15); BUN 8 mg/dL (7-18); BUN/Creat Ratio 13.2 RATIO (10-20); Calcium,Total 8.6 mg/dL (8.5-10.1); Chloride 111 mmol/L (98-107); Creatinine, Serum 0.61 mg/dL (0.55-1.02); EST Glomerular Filtration Rate 120 mL/min (>60); Est Glom Filt Rate - Afr Amer 145 mL/min (>60); Estimated Creatinine Clearance 157.16 ml/min; Glucose 119 mg/dL (74-106); Potassium 3.6 mmol/L (3.5-5.1); Sodium Level 140 mmol/L (136-145)
[2023-12-31] MEDS: Ibuprofen 600 MG Tablet PO (12:35)
--- NOTE | 2023-12-31 13:50 | CASEMGMT ---
Social Work Assessment Labor and Delivery Unit Patient Address: [address] [facility] [place] [address] Phone number: [phone] Date of Referral: 12/30/23 Time of Referral:? 1336 Referred By: Dr. Francois Date of Intervention: ??12/31/23 Time of Intervention:? 1200 Reason for Referral:? hysterectomy support Sw completed chart review and acknowledges social work consult due to mother of baby (MOY- Myriam) requiring unexpected hysterectomy. Sw presented to bedside and introduced self to MOB and father of baby (FOB- Bang). Sw explained sw role and completed psychosocial assessment. History obtained from: medical records, MOB and FOB ??? Household composition: Currently residing in the family home is MOB, FOB and now baby when ready for discharge. Parents report housing is safe and secure. Patient's parent/guardian status:? ?MOB and FOTia have been together for 15 years, they met while going to school together, but started dating after they had graduated. No concerns reported regarding domestic violence or intimate partner violence. This is first baby for both parents. Medical History: MOY is 33 year old female who is 1, para 0- now 1 following labor and delivery of . MOY received routine care during with [facility]. MOY presented to hospital for elective scheduled induction of labor at 39 weeks gestation. MOY required unplanned which then resulted in medical emergency and hysterectomy. baby boy, named Lukasz Ruano, was born weighing 8lb 9oz with an of 9 at 5 minutes of life, respectfully. MOY states that she is bottle feeding baby and he will be followed by Dr. William for pediatrics. ? Educational Status:? Both parents graduated from high school. MOB attended college and obtained her degree. Parents deny concerns with reading, learning or comprehension. Financial Status: Both parents are gainfully employed outside of the home. FOB works for [employer], MOB is a mental health nurse who works for [employer]. Infant Supplies: Parents have obtained all necessary baby supplies, including: car seat, safe sleep space, clothes, diapers and wipes Childcare/Caregiver(s): Parents have family members that will be able to assist with childcare needs once both parents have returned to work following maternity/ paternity leaves. MOB states that they may need to find a on air personality for one or two days out of the week. Transportation:?? Both parents have their drivers license and reliable means of transportation, no barriers Programs/Agencies Involved: ???Parents are not connected to any community resources that assist them financially. Children Services/Legal Issues:??No history of children services involvement, no issues or concerns warranting referral at this time.?? Behavioral Health Issues: ??Mental Health History: FOTia states that he has some anxiety from time to time, nothing that has been clinically diagnosed and has not required medication to help manage. MOB states that she has never had struggles with anxiety or depression. ??? Substance Use History: Parents deny substance use prior to and during . ?? Family History:??FOTia states that his family has struggled with addiction. SINDI states that his mom has been sober for 12 years, however his dad and his mom are still active drug users. SINDI states that he is mindful regarding his genetic disposition and does not use drugs or alcohol to help manage his anxiety. ??? Drug Screens: No drug screens observed in chart review. Family/Social Stressors:? MOY reports that she does not believe that she has truly processed her labor/ delivery and medical emergency that required her to have a hysterectomy. MOB became tearful, understandably, and states that she anticipates struggling with this at some point. MOB reports that she is thankful that she and baby are both alive and healthy. Support Systems: Parents report that they have friends who are supportive and paternal grandpa. Depression/Shaken Baby/Safe Sleeping: Jose educated parents at length regarding signs and symptoms of baby blues and mood and anxiety disorders to be mindful of during this period. Jose talked to parents about struggling mentally after not having the labor or delivery that she anticipated. MOB states that she is mindful of this, especially because she likes to be in control of everything. FOB states that if MOB were to struggle with her mental health during this period he would be able to recognize that and would know how to help and support her. Jose educated parents on shaken baby prevention and ABCs of safe sleep. Parents express understanding. ASSESSMENT:? MOB and baby admitted following labor and delivery. MOB and FOB made and maintained eye contact and engaged openly throughout completion of psychosocial assessment. MOB experienced traumatic delivery and emergency delivery that resulted in need for hysterectomy. MOB willing and able to talk about this and process the finality of what that means for her family. Parents state that they had planned on only having one baby, however it feels different when that decision was made for them. Parents state that they are thankful that MOB and baby are healthy and both will be able to go home when medically ready. Parents were open and receptive to meeting with sw and receptive to support provided. PLAN:? ?No other services requested or indicated. MOB and baby to be discharged when medically ready. Parents were provided literature regarding: signs and symptoms of baby blues and mood and anxiety disorders, Help Me Grow, shaken baby prevention, ABCs of safe sleep and a list of [facility] resources that are available for them should any needs present themselves. Lynn Lowry, FABRIC LAY OUT WORKER, ACCREDITATION MANAGER
[2023-12-31 14:20] VITALS: BP 129/83; PULSE 67; RESP 14; TEMP 36.6; O2SAT 98
== END 2023-12-31 16:25 | disposition home or self-care (01) | DRG 784 ==
PROVIDERS: Obstetrics & Gynecology; Admitting Provider Obstetrics & Gynecology; PCP Internal Medicine; Visit Provider Obstetrics & Gynecology
DX: O61.0 Failed medical induction of labor (principal); O72.1 Other immediate postpartum hemorrhage; D62 Acute posthemorrhagic anemia; J45.909 Unspecified asthma, uncomplicated; O99.214 Obesity complicating childbirth; O72.3 Postpartum coagulation defects; O90.81 Anemia of the puerperium; Z37.0 Single live birth; Z79.82 Long term (current) use of aspirin; Z3A.39 39 weeks gestation of pregnancy; O99.52 Diseases of the respiratory system complicating childbirth; O40.3XX0 Polyhydramnios, third trimester, not applicable or unspecified
CPT/HCPCS: 59025; 59050; 80048; 80053; 83735; 85025; 85027; 85384; 85610; 85730; 86780; 86850; 86900; 86901; 86920; 86965; 88307; 99221; J7120; P9016; P9017; P9035; A4216; G0378; J2405